=== PATIENT | female | born 2005 | race Hispanic/Latino ===

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

== ENCOUNTER 2024-01-05 15:49 | Emergency (ER) | payer MEDICAID, OTHER ==
[~2024-01-05] VITALS: Ht 162.6 cm; Wt 52.2 kg
[2024-01-05 17:33] LABS: APPEARANCE,URINE TURBID (CLEAR); BILIRUBIN,URINE MODERATE mg/dL (NEGATIVE); COLOR,URINE RED (YELLOW); GLUCOSE, URINE (UA) 100 mg/dL (NEGATIVE); KETONES,URINE 15 mg/dL (NEGATIVE); LEUKOCYTE ESTERASE ,URINE SMALL Leu/uL (NEGATIVE); NITRATE,URINE POSITIVE (NEGATIVE); OCCULT BLOOD,URINE LARGE (NEGATIVE); PROTEIN,URINE >=300 mg/dL (NEGATIVE)
[2024-01-05 17:34] LABS: ADD UA MICROSCOPIC YES
[2024-01-05 17:47] LABS: HCG,QUALITATIVE URINE NEGATIVE (NEGATIVE)
[2024-01-05 17:56] LABS: BACTERIA,URINE MOD /HPF (None Seen); RBC,URINE TNTC /HPF (0-1); SQUAMOUS EPITHELIAL CELL,UR Rare /HPF (0-2); YEAST,URINE BUDDING Few /HPF (None Seen)
[2024-01-05 18:19] LABS: BASOPHILS # (AUTO) 0.05 K/uL (0.00-0.20); BASOPHILS % (AUTO) 0.5 % (0.0-5.0); EOSINOPHILS # (AUTO) 0.05 K/uL (0.00-0.70); EOSINOPHILS % (AUTO) 0.5 % (0.0-8.0); HEMATOCRIT 37.8 % (36-48); IMMATURE GRANULOCYTE ABSOLUTE 0.03 K/uL (0-1); LYMPHOCYTES # (AUTO) 1.9 K/uL (1.0-4.8); LYMPHOCYTES % (AUTO) 18.6 % (21.0-51.0); MEAN CORPUSCULAR HGB CONC 33.9 g/dL (32.0-36.0); MEAN CORPUSCULAR VOLUME 85.7 fL (80-100); MONOCYTES # (AUTO) 0.6 K/uL (0.1-1.0); MONOCYTES % (AUTO) 6.2 % (3.0-13.0); NEUTROPHILS # (AUTO) 7.6 K/uL (1.8-7.7); NEUTROPHILS % (AUTO) 73.9 % (40.0-77.0); PLATELET COUNT (AUTO) 263 K/uL (130-400); RED BLOOD CELL COUNT(AUTO) 4.41 MIL/uL (4.00-5.50); RED CELL DISTRIBUTION WIDTH 12.5 % (11.0-15.5); WHITE BLOOD COUNT (AUTO) 10.3 K/uL (4.8-10.8)
[2024-01-05 18:26] LABS: CREATININE 0.7 mg/dL (0.5-1.0); POTASSIUM 3.7 mmol/L (3.5-5.1)
[2024-01-05] MEDS ORDERED: IOHEXOL-350 75 ML VIAL IV ONE (18:41)
[2024-01-05 19:25] VITALS: BP 122/86; PULSE 88; RESP 16; O2SAT 97
[2024-01-05] MEDS: SOLU-MEDROL 125MG VIAL ONE (19:39)
[2024-01-05] MEDS: FAMOTIDINE 20MG VIAL IV ONE (19:39)
[2024-01-05] MEDS: DiphenhydrAMINE HCL 50 MG/ML VIAL ONE (19:39)
[2024-01-05] MEDS: SULFAMETHOX-TMP DS 800/160 TAB PO SCH (20:02)
[2024-01-05] MEDS: FLUCONAZOLE 100 MG TAB PO ONE (20:02)
[2024-01-05] MEDS ORDERED: SULF1TAB42 PO (20:03)
[2024-01-05 20:06] LABS: BILIRUBIN,DIRECT 0.1 mg/dL (0.0-0.3); BILIRUBIN,TOTAL 0.5 mg/dL (0.2-1.0); TOTAL PROTEIN, SERUM 7.9 g/dL (6.0-8.3)
== END 2024-01-05 20:21 | disposition home or self-care (01) ==
LOC: EDH 15:49
DX: B37.49 Other urogenital candidiasis (principal); Z98.890 Other specified postprocedural states; Z88.0 Allergy status to penicillin
CPT/HCPCS: 99285; 74177; 96374; 96375 ×2; 80076; 80048; 85025; 87088; 82948; 81001; 81025; 36415; J1200; J3490; J2919; Q9967

== ENCOUNTER 2024-10-07 03:08 | Emergency (ER) | payer OTHER ==
[~2024-10-07] VITALS: Ht 149.9 cm; Wt 55.8 kg
[~2024-10-07 03:08] MED LIST changes: +SULF1TAB42 PO
[2024-10-07] MEDS: 0.9% NACL 500ML IV.SOLN 500 ML IV ONE (03:33)
[2024-10-07 03:37] LABS: BASOPHILS # (AUTO) 0.05 K/uL (0.00-0.20); BASOPHILS % (AUTO) 0.8 % (0.0-5.0); EOSINOPHILS % (AUTO) 3.1 % (0.0-8.0); HEMATOCRIT 34.1 % (36-48); IMMATURE GRANULOCYTE ABSOLUTE 0.01 K/uL (0-1); LYMPHOCYTES # (AUTO) 3.3 K/uL (1.0-4.8); LYMPHOCYTES % (AUTO) 50.8 % (21.0-51.0); MEAN CORPUSCULAR HEMOGLOBIN 29.3 pg (27.0-33.0); MEAN CORPUSCULAR HGB CONC 33.1 g/dL (32.0-36.0); MEAN CORPUSCULAR VOLUME 88.3 fL (80-100); MONOCYTES # (AUTO) 0.6 K/uL (0.1-1.0); MONOCYTES % (AUTO) 8.4 % (3.0-13.0); NEUTROPHILS # (AUTO) 2.4 K/uL (1.8-7.7); NEUTROPHILS % (AUTO) 36.7 % (40.0-77.0); PLATELET COUNT (AUTO) 284 K/uL (130-400); RED BLOOD CELL COUNT(AUTO) 3.86 MIL/uL (4.00-5.50); RED CELL DISTRIBUTION WIDTH 13.4 % (11.0-15.5); WHITE BLOOD COUNT (AUTO) 6.5 K/uL (4.8-10.8)
[2024-10-07 03:39] LABS: APPEARANCE,URINE CLEAR (CLEAR); BILIRUBIN,URINE NEGATIVE (NEGATIVE); COLOR,URINE LIGHT-YELLOW (YELLOW); GLUCOSE, URINE (UA) NEGATIVE (NEGATIVE); KETONES,URINE NEGATIVE (NEGATIVE); LEUKOCYTE ESTERASE ,URINE NEGATIVE Leu/uL (NEGATIVE); NITRATE,URINE NEGATIVE (NEGATIVE); OCCULT BLOOD,URINE LARGE (NEGATIVE); PH,URINE 6.5 (5.0-8.0); PROTEIN,URINE NEGATIVE (NEGATIVE); UROBILINOGEN,URINE 0.2 mg/dL (0.2-1.0)
[2024-10-07 03:41] LABS: HCG,QUALITATIVE URINE NEGATIVE (NEGATIVE)
[2024-10-07 03:43] LABS: ADD UA MICROSCOPIC YES
[2024-10-07 03:45] LABS: BACTERIA,URINE FEW /HPF (None Seen); MUCUS,URINE RARE LPF (None Seen); RBC,URINE TNTC /HPF (0-1); SQUAMOUS EPITHELIAL CELL,UR RARE /HPF (0-2)
[2024-10-07 03:47] LABS: CREATININE 0.8 mg/dL (0.5-1.0); POTASSIUM 3.8 mmol/L (3.5-5.1)
--- NOTE | 2024-10-07 04:10 | ERN ---
ED Note History of Present Illness Stated Complaint: LOW BACK, RT FLANK PAIN. UNDER TREATMENT FOR UTI Chief Complaint: UTI without Fever Time Seen by MD: 03:23 Dictation: This is a 19-year-old female who presented to the emergency room with complaints of low back pain and right flank pain. All these symptoms started on 10/01/2024 and she saw her physician and was diagnosed with UTI she started taking nitrofu rantoin on 10/03. Today she saw some blood in the urine and was concerned she could not see if it was related to her. Are not and came into the ER for further evaluation. New fevers or chills. She had the urine culture results on her cell phone which showed E coli resistant to Bactrim and cephalosporins but sensitive to Zosyn, meropenem, as well as nitrofurantoin Temperature 97.5 pulse 87 respirations 16 blood pressure 137/94 with a pulse oximetry of 99% on room air Allergies: Coded Allergies: Penicillins (Unverified Allergy, Unknown, 08/29/21) Home Meds Active Scripts Sulfamethoxazole/Trimethoprim (Bactrim Ds Tablet) 800 Mg-160 Mg Tablet, 1 TAB PO BID for 10 Days, #20 TAB 0 Refills Prov:BOOKER CARRIZALES 01/05/24 Ibuprofen (Ibu) 400 Mg Tablet, 600 MG PO TIDMEALS, #60 TAB Prov:SHANTA NORTH 08/29/21 Past Medical History Past Medical History: Other Additional Past Medical Hx: OVARIAN TUMOR Surgical History: Other Surgical History Other: OVARIAN TUMOR REMOVAL Family History: Negative Social History: Negative LMP: Sep 08, 2024 : 1 Para: 0 RN Note Reviewed/Agreed w/PFSH: Yes Review of System Dictation Constitutional: Negative for fever,chills, and weight loss Eyes: Negative for injury, pain,redness, and discharge ENT: Negative for injury,pain or swelling Cardiovascular: Negative for chest pain, palpitations, and edema Respiratory: Negative for shortness of breath, cough, and wheezing, Abdomen/GI: Negative for abdominal pain, nausea, vomiting, diarrhea, and constipation Back: Negative for injury and pain : Negative for injury, bleeding and discharge MS/Extremity: Negative for injury and deformity Skin: Negative for rash, and discoloration Neuro: Negative for headache, weakness, numbness, tingling, and seizure Psych: Negative for suicide ideation, homicidal ideation, and hallucinations Initial Vital Sign VS Vital Signs Date Time Temp Pulse Resp B/P (MAP) Pulse Ox O2 Delivery O2 Flow Rate FiO2 10/07/24 03:10 97.5 87 16 137/94 99 Room Air 10/07/24 03:35 0 21 Physical Exam Dictation General: awake, alert, NAD Head/Face: Normocephalic, atraumatic Eyes: PERRL, EOMI, vision at baseline ENT: oral cavity clear, TMs clear, no signs of infection Neck: Trachea midline, supple, no nuchal rigidity Cardiovascular: RRR, normal S1/S2, No MRGs, no JVD Respiratory: CTAB, no respiratory distress, No rales or wheezes Abdomen: Soft, non-tender, non-distended, normal bowel sounds, no guarding or rebound. Skin: Warm, dry, normal turgor, no rash MS/Extremity: Pulses equal, no cyanosis, neurovascular intact, FROM Neuro: COAx4, GCS 15, strength 5/5, CN 2-12 intact, normal cerebellar exam, normal gait, Psych: Normal behavior, mood, and affect normal Extremities-trace edema without any palpable cords, Homans sign is negative Results (Laboratory/Radiology) Laboratory/Radiology Laboratory Tests Test 10/07/24 03:22 White Blood Count 6.5 K/uL (4.8-10.8) Red Blood Count 3.86 MIL/uL (4.00-5.50) L Hemoglobin 11.3 g/dL (12.0-16.0) L Hematocrit 34.1 % (36-48) L Mean Corpuscular Volume 88.3 fL (80-100) Mean Corpuscular Hemoglobin 29.3 pg (27.0-33.0) Mean Corpuscular Hemoglobin Concent 33.1 g/dL (32.0-36.0) Red Cell Distribution Width 13.4 % (11.0-15.5) Platelet Count 284 K/uL (130-400) Mean Platelet Volume 9.9 fL (7.5-10.5) Immature Granulocyte % (Auto) 0.2 % (0-1) Neutrophils (%) (Auto) 36.7 % (40.0-77.0) L Lymphocytes (%) (Auto) 50.8 % (21.0-51.0) Monocytes (%) (Auto) 8.4 % (3.0-13.0) Eosinophils (%) (Auto) 3.1 % (0.0-8.0) Basophils (%) (Auto) 0.8 % (0.0-5.0) Neutrophils # (Auto) 2.4 K/uL (1.8-7.7) Lymphocytes # (Auto) 3.3 K/uL (1.0-4.8) Monocytes # (Auto) 0.6 K/uL (0.1-1.0) Eosinophils # (Auto) 0.20 K/uL (0.00-0.70) Basophils # (Auto) 0.05 K/uL (0.00-0.20) Absolute Immature Granulocyte (auto 0.01 K/uL (0-1) Nucleated Red Blood Cells 0.0 % (0.0-0.19) Urine Color LIGHT-YELLOW (YELLOW) Urine Appearance CLEAR (CLEAR) Urine pH 6.5 (5.0-8.0) Urine Specific [place] 1.026 (1.001-1.031) Urine Protein NEGATIVE mg/dL (NEGATIVE) Urine Glucose (UA) NEGATIVE mg/dL (NEGATIVE) Urine Ketones NEGATIVE mg/dL (NEGATIVE) Urine Occult Blood LARGE (NEGATIVE) H Urine Nitrate NEGATIVE (NEGATIVE) Urine Bilirubin NEGATIVE mg/dL (NEGATIVE) Urine Urobilinogen 0.2 mg/dL (0.2-1.0) Urine Leukocyte Esterase NEGATIVE Quiana/uL Urine RBC TNTC /HPF (0-1) H Urine WBC 6-10 /HPF (0-1) H Urine Squamous Epithelial Cells RARE /HPF (0-2) Urine Bacteria FEW /HPF (None Seen) Urine HCG, Qualitative NEGATIVE (NEGATIVE) Sodium Level 134 mmol/L (136-145) L Potassium Level 3.8 mmol/L (3.5-5.1) Chloride Level 100 mmol/L (101-111) L Carbon Dioxide Level 26 mmol/L (21-32) Blood Urea Nitrogen 18 mg/dL (7-18) Creatinine 0.8 mg/dL (0.5-1.0) Glomerular Filtration Rate Calc 108 mL/min (>90) Random Glucose 91 mg/dL (70-105) Total Calcium 8.6 mg/dL (8.5-10.1) Labs Reviewed?: Yes ED Course ED Course Orders Procedure Category Date Status Time Urinalysis Profile LAB 10/07/24 Complete 03:23 ,Urine Test LAB 10/07/24 Complete 03:23 Cbc With Differential LAB 10/07/24 Complete 03:23 Basic Metabolic Panel LAB 10/07/24 Complete 03:23 0.9% Nacl 500ml PHA 10/07/24 Complete Iv.Soln (Ns 500ml 03:30 Culture Urine MARGARET 10/07/24 In Process 03:45 Levofloxacin 750 PHA 10/07/24 Complete Mg/D5w 150 Ml 04:30 Current Medications Medications (Trade) Dose Ordered Sig/Devonte Route PRN Reason Start Time Stop Time Status Last Admin Dose Admin Levofloxacin/ Dextrose (LEvaquIN 750 MG/ D5W 150 ML) 750 mg ONCE ONCE IV 10/07/24 04:30 10/07/24 04:31 DC 10/07/24 04:36 Sodium Chloride 500 ml @ 0 mls/hr ONCE ONCE IV 10/07/24 03:30 10/07/24 03:31 DC 10/07/24 03:33 Vital Signs Date Time Temp Pulse Resp B/P (MAP) Pulse Ox O2 Delivery O2 Flow Rate FiO2 10/07/24 05:21 98.2 78 18 111/68 99 Room Air* 0 21 10/07/24 04:30 98.1 81 16 121/79 99 Room Air* 0 21 10/07/24 03:35 98.2 75 18 112/61 97 Room Air* 0 21 10/07/24 03:10 97.5 87 16 137/94 99 Room Air We will perform diagnostic labs, and administer medications according to the patient's complaint. Once the results are available, will review and personally interpreted the labs to rule out any acute life-threatening emergency the trach require immediate intervention and treatment. I will then re-evaluate the patient after treatment and diagnostic exams have return to determine whether the patient requires any further testing, can safely be discharged home or need further admission to hospital for additional treatment and evaluation. Reviewed labs CBC BNP 7 are within normal limits urinalysis showed some occult blood but WBCs are very few leuko esterase is negative. I had a long discussion with the patient and her mother that she is on the right antibiotic in the E coli is sensitive to the nitrofurantoin. I have reassured them that it is not uncommon to see hematuria with UTI which clears up as the infection and inflammation improves. Answered all their questions. We will give a dose of levofloxacin and discharge her to follow up with her PCP Medical Decision Making MDM MDM: Differential diagnosis: UTI, menstrual bleeding Rationale: Tests considered and ordered secondary to shared decision making include: Previous outside records reviewed: Old ER visits. Risk of complication and/or morbidity or mortality of patient management: None Medications-Per medication reconciliation Need for hospitalization: Patient does not meet criteria for hospitalization. Need for emergency major/minor surgery: No There are no social concerns with this patient. Prescription drug management Prescriptions will include symptomatic care Patient's prior external medical records from other ER visits were reviewed by me as indicated. Prior testing and results from previous visits were reviewed. Prior tests were taken into account with medical decision making and resource utilization, independent historian/historians were used to obtain complete medical history. I independently interpreted the test that were performed, results were reviewed by me and considered findings on radiology if ordered. Medical management and examination interpretation discussions were had by me with other qualified healthcare professionals as indicated for the patient's care. Problem List Problem List: (1) Urinary tract infection (2) Vaginal bleeding DX & DISP Disposition: Discharge Departure Impression: Primary Impression: Urinary tract infection Additional Impressions: Vaginal bleeding, E. coli UTI (urinary tract infection) Condition: Stable Additional Instructions: Patient and the caregiver have been informed of all the diagnostic tests and the imaging conducted during the today's visit to the emergency room and has verbalized understanding of the results I have personally reviewed and interpreted all diagnostic exams performed here in the ER today as well as the vital signs documented by the nursing staff. The patient is now being discharged to home and should follow up with the primary care physician or the specialist as directed by the ER staff. Follow-up with primary care provider in 1 to 2 days. Take medications as directed here in the emergency room. Okay to continue home medications unless otherwise discussed during your visit in the emergency room today. Return to your nearest emergency room if symptoms worsen or if there is no improvement. Call 911 if you need immediate assistance. Take Tylenol or Motrin [id number] nter as needed and if no contraindications are present. Increase oral hydration. A wound culture or urine culture was ordered here in the emergency room department please follow-up with primary care provider and advise them to get repeat ports from our facility. If you had any Sergio wrap/splints that were applied here, please do not remove them until you see your primary care or s pecialty. Referrals: SELF,REFERRAL (PCP) TELMA CHAUDHARI MD Oct 07, 2024 04:10
[2024-10-07] MEDS: levoFLOXacin 750 MG/D5W 150ML BAG IV ONE (04:36)
[2024-10-07 05:43] VITALS: BP 95/64; PULSE 87; RESP 18; TEMP 98.2; O2SAT 99
== END 2024-10-07 05:53 | disposition home or self-care (01) ==
LOC: EDH 03:08
DX: N39.0 Urinary tract infection, site not specified (principal); N93.9 Abnormal uterine and vaginal bleeding, unspecified; B96.20 Unspecified Escherichia coli [E. coli] as the cause of diseases classified elsewhere; Z88.0 Allergy status to penicillin
CPT/HCPCS: 99283; 96374; 96361; 80048; 85025; 87086; 81001; 81025; 36415; J7040; J1956